=== PATIENT | male | born 1950 | race Caucasian/White ===

== ENCOUNTER 2016-09-19 10:25 | Emergency (ER) | payer BC ==
[~2016-09-19 10:25] MED LIST: PLAVIX 75 MG TA75 MG PO
[2016-09-19 10:56] LABS: HEMOGLOBIN 14.3 gm/dl (14.0-17.5); RED BLOOD COUNT 4.53 M/UL (4.20-5.50); WHITE BLOOD COUNT 7.4 K/UL (4.5-11.0)
[2016-09-19 12:11] LABS: BUN/CREATININE RATIO 20 (0-10)
== END 2016-09-19 13:40 | disposition home or self-care (01) ==
LOC: ER1 10:25
PROVIDERS: Emergency Medicine
DX: R00.1 Bradycardia, unspecified (principal); I25.2 Old myocardial infarction; I48.91 Unspecified atrial fibrillation; Z88.2 Allergy status to sulfonamides; Z79.01 Long term (current) use of anticoagulants; Z79.02 Long term (current) use of antithrombotics/antiplatelets; Z79.899 Other long term (current) drug therapy
CPT/HCPCS: 36415; 71010; 80053; 82550; 82553; 83874; 83880; 84484; 85025; 93005; 99284